=== PATIENT | male | born 1980 | race Caucasian/White ===

== ENCOUNTER 2024-08-15 08:20 | Emergency (ER) | payer OTHER, SELFPAY ==
[2024-08-15 08:27] VITALS: BP 159/111
[2024-08-15 09:06] VITALS: BP 140/88
[2024-08-15 09:23] VITALS: BMI 34.5
--- NOTE | 2024-08-15 09:34 | EDRN ---
Rubin TERESA in room w/ pt at this time.
[2024-08-15 09:41] LABS: % Basophils 0.4 % (0-2); % Eosinophils 0.4 % (0-6); % Immature Granulocytes 0.4 % (0-0.5); % Lymphocytes 23.1 % (20.5-51.1); % Monocytes 6.2 % (1.7-9.3); % Neutrophils 69.5 % (42.2-75.2); Absolute Lymphocytes 1.8 10^3/uL (1.2-3.4); Absolute Monocytes 0.5 10^3/uL (0.1-0.6); Absolute Neutrophils 5.4 10^3/uL (1.4-6.5); Mean Corp Hgb Conc. 35.7 g/dL (33.0-37.0); Mean Corpuscular Hgb 30.3 pg (27.0-31.0); Mean Corpuscular Volume 84.8 fL (80.0-94.0); Mean Platelet Volume 9.9 fL (7.4-10.4); Nucleated Red Blood Cells % 0 % (-); Platelet Count 228 10^3/uL (130-400); Red Blood Cell Count 4.95 10^6/uL (4.70-6.10); Red Cell Dist. Width 12.5 % (11.5-14.5); White Blood Cell Count 7.8 10^3/uL (4.8-10.8)
--- NOTE | 2024-08-15 09:44 | ED.GENMED ---
History of Present Illness
General
Chief Complaint: Chest Pain
Source: patient
Exam Limitations: none
Time Seen by Provider: 08/15/24 09:13
Nursing documentation reviewed up to this point in time: agreed with
History of Present Illness
History of Present Illness:
pt is a 43 y/o M
no sig pmh
says borderline high cholesterol but only takes fish oil
here with a few days of feeling some pressure or some sort of funny feeling in chest but then when he woke up around 6 pm he felt worse, felt anxious/nervous with the mild chest pressure /10
not worse with breathing no exertional sypmtoms
had 1 episode of dry heaving
he has not had any more nausea
no abdomianl pain
felt like he was 'comign down with something' a few days ago, mild cough/congestion, no fever
he has not had any dizziness, confusion, sob, abdominal pain, diarrhea, constipation, leg swelling
no recent long travel
no PE rf
no fhx of CAD.
was in pcp office a few weeks ago and had what he believes was normal bp
Past History
Past History
ED Past Medical History: None
ED Past Surgical History: None
Social History
Tobacco: Non-smoker
Alcohol: Occasional
Drug: None
Personal:
Living: with family
Employment: Employed
Family History
Family History: Hypertension; Negative Diabetes, Early CAD, CAD or Sudden
Review of Systems
Review of Systems
Allergies reviewed?: Yes
All Other Systems: Not applicable
Phy Exam
Physical Exam
Physical Exam:
GENERAL: Alert , in no apparent distress, comfortable
EYE: pupils equal and reactive
NECK: Supple
ENT: o/p clr, mmm.
CARDIAC: Regular rate and rhythm .
LUNGS: Clear breath sounds bilaterally, no acute respiratory distress, no wheezes/rales/rhonchi
ABDOMEN: Soft, without focal tenderness, no r/g, no cvat, normal bowel sounds
NEUROLOGICAL: Alert and oriented, no focal neuro deficits
SKIN: Warm and dry, skin intact.
MUSCULOSKELETAL: No edema, well perfused. neg khadra's sign
PSYCH: mildly anxious; no depression
Scores
Heart Score for Chest Pain Patients
STEMI patient?: No
History: Slightly or Non-Suspicious
ECG: Normal
Age: </= 45 years
Risk Factors: No Risk Factors
Troponin: </= Normal Limit
Heart Score for Chest Pain Patients: 0
Heart Score Risk: 2.5% MACE over next 6 weeks
Course
Orders/Labs/Results
Orders:
Orders
08/15/24 08:23
EKG [Electrocardiogram (*1)] Stat
Reason for Study: Chest Pain
EKG- Treatment ONCE
08/15/24 09:19
Cardiac Monitoring- Treatment ONCE
IV Insert/Care/Rem.- Treatment PRN
08/15/24 09:30
D-Dimer Urgent
08/15/24 09:31
Complete Blood Count/With Diff Urgent
Comprehensive Metabolic Panel Urgent
Troponin I Urgent
08/15/24 09:55
COVID-19 Antigen Urgent
Source: Nasal Swab
08/15/24 10:24
EKG- Treatment ONCE
08/15/24 10:47
CR Chest - 2 Views Urgent
Comment:
Reason For Exam: chest pain
08/15/24 12:00
Electrocardiogram (*1) Urgent
Reason for Study: Chest Pain
08/15/24 12:02
Troponin I Urgent
Abnormal Lab Results
08/15/24
09:31
Glucose 106 H mg/dl
(70-99)
08/15/24 09:31
08/15/24 09:31
Vital Signs
Initial and Last Documented VS:
Initial Vital Signs
Temp Pulse Resp BP Pulse Ox
98.9 F 93 18 159/111 96
08/15/24 08:27 08/15/24 08:27 08/15/24 08:27 08/15/24 08:27 08/15/24 08:27
Last Documented Vital Signs
Temp Pulse Resp BP Pulse Ox
98.9 F 83 21 133/65 93
08/15/24 08:27 08/15/24 12:45 08/15/24 12:45 08/15/24 12:00 08/15/24 12:45
MDM/Problems Addressed
Differential Diagnosis Includes:
anxiety, covid, lightheaded/orthostasis, viral syndrome, less likely ACS
MDM/Problems Addressed:
43 y/o M hasn't been feeling himself fo ra few days, couldn't really put it into words, feeling fuzzy and then he has also had dull pressure intermittently, not reliated to exertion for a feays but thi smorning he had worsening ches ttightnes and
nausea
wasn't sure if he was feeling anxious or not
he has a mild headache
chest pressure is mostly gone
he has no sob, fever, cough, syncope, palpitations
on exam appears well but mildly axnious
neuro intact, heart regular
ekg nsr, no t wave inversions, no stelevation or depression
had w/u with labs and 2 trop, 2 ekg all neg
chestxray indep reivewed, neg
given lenght of symptoms, lack of exertional symptoms, low cardiac risk, and normal w/u, doubtful this is ACS.
d/c home, outpatient cards/pcp f/u.
*Critical Care Note
Total Time (30-74mins, 75-104mins- exclusive of procedures): Not Applicable
ED Attending Note
-
Portions of this chart may have been created with voice recognition software.� Occasional wrong word or��sound alike� substitutions may have occurred due to the inherent limitations of voice recognition software.
Discharge Plan
Departure
Patient Disposition: Home (Routine Discharge)
Date of Disposition: 08/15/24
Time of Disposition: 12:49
Patient with high blood pressure during this ER visit?: No
Condition: Fair
Covid-19: Not Applicable
Discharge Problem:
Chest pain
Instructions: Chest Pain PCP Follow Up
Referrals:
Pedro Porras MD [Active] - Follow up in 2-3 days
Manish Sharma DO [Family Provider] - Follow up in 2-3 days
Activity Restrictions/Additional Instructions:
WE ARE NOT SURE THE CAUSE OF YOUR CHEST PAIN
YOU HAD 2 NEGATIVE TROPONINS AND 2 NORMAL EKGS
YOUR BLOOD WORK WAS ALSO NORMAL OTHERWISE
YOUR CHEST XRAY WAS CLEAR
YOUR COVID WAS NEGATIVE
YOU CAN STAY HYDRATED, TYLENOL OR MOTRIN FOR PAIN
TAKE IT EASY - FOLLOW UP WITH YOUR DOCTOR NEXT WEEK AND YOU CAN ALSO CALL THE [facility] [employer] FOR AN APPOITNMENT FOR FURTHER EVALUATION
RETURN SOONER FOR ANY CONCERNS.
Interventions
Interventions:
*Risk Screen - Suicide Last Done: 08/15/24 08:27
*General Assessment Last Done: 08/15/24 08:27
*Neglect/Abuse Screening Last Done: 08/15/24 08:27
ED- Fall Risk Assessment Last Done: 08/15/24 09:30
*ED COVID-19 Vaccine History Last Done: 08/15/24 09:24
*Nursing Disposition Last Done: 08/15/24 12:56
ED- Cardiac Assessment Last Done: 08/15/24 09:59
Discharge Date and Time
Discharge Date/Time: 08/15/24 13:12
Print Language: WOLOF
[2024-08-15 09:58] LABS: ALT (SGPT) 44 U/L (0-50); AST (SGOT) 26 U/L (17-59); Albumin 4.8 g/dl (3.5-5.0); Alkaline Phosphatase 63 U/L (38-126); Blood Urea Nitrogen 13 mg/dl (9-20); Calcium 9.7 mg/dl (8.4-10.2); Carbon Dioxide 24 mmol/L (22-30); Chloride 104 mmol/L (98-107); Estimated Creatinine Clearance > 125 ml/min; Glucose 106 mg/dl (70-99); Potassium 4.5 mmol/L (3.5-5.1); Sodium 141 mmol/L (135-145); Total Protein 7.1 g/dl (6.3-8.2); eGFR > 60.00
[2024-08-15 10:00] VITALS: BP 126/74
[2024-08-15 10:05] LABS: Troponin I < 0.012 ng/ml
[2024-08-15 10:23] LABS: COVID-19 Antigen Negative (Negative)
[2024-08-15 10:25] LABS: D-Dimer < 0.27 ug/mlFEU (0.00-0.50)
[2024-08-15 11:00] VITALS: BP 135/77
[2024-08-15 12:00] VITALS: BP 133/65
[2024-08-15 12:33] LABS: Troponin I < 0.012 ng/ml
== END 2024-08-15 13:12 | disposition home or self-care (01) ==
LOC: EMR 08:20
PROVIDERS: Physician Assistant; EMERGENCY PHYSICIAN Emergency Medicine; FAMILY PHYSICIAN Family Medicine
DX: R07.89 Other chest pain (principal); E78.00 Pure hypercholesterolemia, unspecified
CPT/HCPCS: 99283; 71046; 80053; 84484; 85025; 85379; 87811; 93005

== ENCOUNTER → 2024-11-20 14:30 | Outpatient (REF) | payer OTHER, SELFPAY | LOC: HWRAD 14:30 | PROVIDERS: ATTENDING PHYSICIAN Chiropractor; FAMILY PHYSICIAN Family Medicine | DX: M54.2 Cervicalgia (principal); M54.6 Pain in thoracic spine; M25.512 Pain in left shoulder | CPT/HCPCS: 72050; 72072; 73030 ==